=== PATIENT | female | born 1990 | race Caucasian/White ===

== ENCOUNTER 2016-06-22 22:04 | Inpatient (IN) | payer OTHER ==
[2016-06-23] MEDS ORDERED: TERBUTALINE SULFATE 1 MG/ML VIAL IV PRN (01:25)
[2016-06-23] MEDS ORDERED: OXYTOCIN/RINGERS LACTATE 1,000 ML IV PRN (01:25)
[2016-06-23] MEDS ORDERED: EPSOM SALT 454 GM TP PRN (01:25)
[2016-06-23] MEDS ORDERED: LIDOCAINE 1% 30 ML SDV SC PRN (01:25)
[2016-06-23] MEDS ORDERED: OLIVE OIL 118 ML BTL MISC PRN (01:25)
[2016-06-23] MEDS ORDERED: ACETAMINOPHEN 500 MG TAB PO ONE (01:30)
[2016-06-23] MEDS: LR 1,000 ML IV PRN ×3 (02:10→08:21)
[2016-06-23 02:19] LABS: % IMMATURE GRANULYOCYTES 0.8 % (0.0-1.1); ABSOLUTE IMMATURE GRANULOCYTES 0.16 10^3/uL (0.00-0.10); ADD DIFF? NO; ADD MORPH? NO; ADD SCAN? NO; ATYPICAL LYMPHOCYTE FLAG 0 (0-99); FRAGMENT RBC FLAG 0 (0-99); HEMATOCRIT 41.4 % (38.0-47.0); HEMOGLOBIN 14.4 g/dL (12.6-16.3); LEFT SHIFT FLG 10 (0-99); LIPEMIA HEMOLYSIS FLAG 90 (0-99); MEAN CELL HEMOGLOBIN 32.7 pg (27.9-34.1); MEAN CELL HEMOGLOBIN CONCENTR. 34.8 g/dL (32.4-36.7); MEAN CELL VOLUME 94.1 fL (81.5-99.8); MEAN PLATELET VOLUME 10.5 fL (8.7-11.7); PLATELET CLUMPS FLAG 20 (0-99); PLATELET COUNT 249 10^3/uL (150-400); RED CELL DISTRIBUTION WIDTH 13.9 % (11.5-15.2)
[2016-06-23] MEDS ORDERED: LIDOCAINE 1% 30 ML SDV ONE (02:20)
[2016-06-23] MEDS ORDERED: OLIVE OIL 118 ML BTL ONE (02:20)
[2016-06-23] MEDS ORDERED: MISOPROSTOL 200 MCG TAB ONE (02:21)
[2016-06-23] MEDS ORDERED: OXYTOCIN 10 UNIT/ML VIAL ONE (02:21)
[2016-06-23] MEDS ORDERED: TERBUTALINE SULFATE 1 MG/ML VIAL ONE (02:21)
[2016-06-23] MEDS ORDERED: fentaNYL 100 MCG/2 ML INJ ONE (02:46)
[2016-06-23] MEDS ORDERED: BUPIVACAINE 0.25% 30 ML SDV ONE (02:47)
[2016-06-23] MEDS ORDERED: fentaNYL 2MCG/ML/BUP 0.1% RTU 100 ML BAG EP ONE ×2 (02:48→10:22)
[2016-06-23] MEDS ORDERED: PHENYLEPHRINE HCL 100 MCG/ML SYR ONE (02:49)
--- NOTE | 2016-06-23 02:54 | GHP ---
[f rep st] HISTORY AND PHYSICAL DATE OF ADMISSION: 06/23/2016 ADMITTING DIAGNOSIS: Intrauterine at 39-2/7 weeks' gestation in spontaneous labor. HISTORY OF PRESENT ILLNESS: The patient is a 25-year-old 1, para 0, with a last menstrual p eriod 09/28/2015 and an EDC of 06/28/2016, which was confirmed by an 8-week ultrasound. She has had good care at [facility] since 8 weeks' gestation and has no significant risk factors. Patient began having contractions on the morning of the . They gradually increa sed in intensity and frequency over the course of the day and the evening, and they eventually progr essed to every 3-5 minutes. Patient presented to the hospital. Her cervix was originally 2 cm and 70%. She was observed for a couple hours, and she progressed to 3-4, 70, -1, and she is uncomfortab le and desires pain control, so she will be admitted for active labor management. She is intact, mcmullen s no significant bleeding or leakage of fluid, and baby has been moving well. PAST OBSTETRICAL HISTORY: Patient has no past obstetrical history. This is her first . PAST GYNECOLOGICAL HISTORY: No significant past gynecological history. She has used oral contracep tive pills in the past. Has a normal menstrual triad and received her Gardasil vaccine. PAST MEDICAL HISTORY: Only medical issue significant is she had a softball injury, crushed her left eye socket in high school. She did not require surgery for this. PAST SURGICAL HISTORY: LASIK. ALLERGIES: No known drug allergies. MEDICATIONS: Include vitamins and DHA. LABORATORY DATA: She is O positive, antibody negative, RPR nonreactive, rubella immune, hepatitis n egative, HIV negative. Cystic fibrosis, SMA, and fragile X negative. Verifi was normal. AFP was n ormal. 1-hour GTT was 88 and GBS was negative. SOCIAL HISTORY: She is . She lives with her , and she denies tobacco, alcohol, and d rug use. 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 FAMILY HISTORY: Mother has asthma. Paternal grandfather had diabetes. Brother has IgA nephropathy and kidney issues. Both her maternal grandfather and maternal grandmother and paternal grandfather had lung cancer. Maternal grandfather also had prostate cancer, and that is all that is significan t. REVIEW OF SYSTEMS: Negative except for labor. OBJECTIVE: VITAL SIGNS: Today, she is afebrile. Vital signs are stable. heart tones were 1 30s, reactive, moderate variability, category 1. Contractions are every 3-5 minutes. Cervix 3-4, 7 0%, -1, intact. ASSESSMENT AND PLAN: A 25-year-old 1, para 0, at 39-2/7 weeks' gestation in active labor. Patient will be admitted for active labor management. She desires pain control, and she will get pa in control as desired. /[id number]/MODL
[2016-06-23] MEDS ORDERED: LR 500 ML IV SCH (03:30)
[2016-06-23] MEDS: CALCIUM CARBONATE 500 MG CHEWABLE TAB PO PRN ×3 (03:48→12:59)
--- NOTE | 2016-06-23 08:01 | OBPROG ---
OBG Progress Note Assessment/Plan: Assessment: 25y/o IUP @39w2d admitted in active labor FH Tracing Cat 1 Plan: AROM - clear @[address] Con't maternal/ monitoring Expectant mgmt Anticipate 06/23/16 07:58 Subjective: Pt resting comfortably in bed s/p epidural, denies pain. FOB at bedside. Objective: 06/23/16 02:07 Patient ABO/Rh O POSITIVE 06/23/16 02:07 - SVE Dilation (cm): 5 Effacement (%): 75 Station: -2 Current Contraction Pattern: Regular (q 4 min) FHR (bpm): 150 FHR Pattern Variability: Moderate (+accels, -decels) FHR Category: 1 Membranes: AROM (clear @0725, blood show) Amniotic Fluid Color: Clear ICD10 Worksheet Patient Problems: Problems Problem Status Onset Active labor at term Acute - ICD10 Problem Qualifiers (1) Active labor at term
--- NOTE | 2016-06-23 11:43 | OBPROG ---
OBG Progress Note Assessment/Plan: Assessment: 25y/o IUP @39w2d admitted in active labor FH Tracing Cat 2 Plan: Labor-down until feeling urge to push Epidural in place Con't maternal/ monitoring Expectant mgmt Anticipate 06/23/16 11:43 Subjective: Pt still comfortable s/p epiudral. C/O increased pressure/pain with CTXs. Objective: 06/23/16 02:07 Patient ABO/Rh O POSITIVE 06/23/16 02:07 - SVE Dilation (cm): 8 Effacement (%): 100 Station: 0 Current Contraction Pattern: Regular (q 2-4 min) FHR (bpm): 145 FHR Pattern Variability: Moderate FHR Category: 2 (+accels, occas variable decel with spont return to baseline) Membranes: AROM (@0725) Amniotic Fluid Color: Clear ICD10 Worksheet Patient Problems: Problems Problem Status Onset Active labor at term Acute - ICD10 Problem Qualifiers (1) Active labor at term
--- NOTE | 2016-06-23 14:11 | OBPROC ---
- Labor and Delivery Onset of Contractions Date: 06/22/16 Onset of Contractions Time: 15:00 Onset of Contractions Type: Spontaneous Rupture of Membranes Date: 06/23/16 Rupture of Membranes Time: 07:27 Rupture of Membranes Type: Artificial Amniotic Fluid Color: Clear Dilation Complete Time: 12:35 Delivery Type: Spontaneous Placenta Delivery Date: 06/23/16 Placenta Delivery Time: 13:43 Episiotomy/Laceration: 1st Degree, Perineal (hemostatic), Periurethral ( bilateral, hemostatic) EBL: 300 Complications: Nuchal Cord (x1, easily reduced) - Medications Labor Augmentation/Induction Meds Used: None Anesthesia: Epidural - [place] Info A Delivery Date: 06/23/16 Delivery Time: 13:34 Sex of : Female Score (1 Min): 8 Score (5 Min): 9
[2016-06-23] MEDS ORDERED: HYDROCODONE/APAP 5/325 TAB PO PRN (14:13)
[2016-06-23] MEDS ORDERED: SIMETHICONE 80 MG TAB CHEW PO PRN (14:13)
[2016-06-23] MEDS ORDERED: DOCUSATE SODIUM 100 MG CAP PO PRN (14:13)
[2016-06-23] MEDS ORDERED: HYDROCORTISONE 0.5% CREAM TP PRN (14:13)
[2016-06-23] MEDS ORDERED: ACETAMINOPHEN 325 MG TAB PO PRN (14:13)
[2016-06-23] MEDS ORDERED: OXYTOCIN/RINGERS LACTATE 1,000 ML IV SCH (14:30)
[2016-06-23] MEDS: IBUPROFEN 600 MG TAB PO PRN ×2 (14:36→21:14)
[2016-06-23 20:09] VITALS: RESP 16
--- NOTE | 2016-06-24 07:53 | OBPROG ---
OBG Progress Note Assessment/Plan: Assessment: s/p PPD # 1 - pt is stable Plan: Continue routine pp care Plan for d/c home today Instructions reviewed with pt No RX given Cont PNV Plevic rest RTC in 4 and 6 weeks 06/24/16 07:51 Subjective: Pt seen and examined. Doing well with no complaints. Minimal cramping-no meds taken. Moderate lochia. without difficulty. Wants to go home today. Objective: 06/23/16 02:07 Patient ABO/Rh O POSITIVE 06/23/16 02:07 Temp Pulse Resp BP Pulse Ox 36.9 C 96 16 106/72 98 06/23/16 19:35 06/23/16 19:35 06/23/16 19:35 06/23/16 19:35 06/23/16 19:35 Uterine Position/Fundal Height: Umbilicus -2 Uterine Tone: Firm - Physical Exam General Appearance: WD/WN, alert, no apparent distress Respiratory: lungs clear, normal breath sounds Cardiac/Chest: regular rate, rhythm Abdomen: normal bowel sounds, non-tender, soft, flatus (+) Genitourinary: lochia (moderate) Extremities: non-tender, normal inspection Neuro/Psych: alert, normal mood/affect, oriented x 3 ICD10 Worksheet Patient Problems: Problems Problem Status Onset (spontaneous vaginal delivery) Acute
[2016-06-24] MEDS: IBUPROFEN 600 MG TAB PO PRN (08:29)
[2016-06-24 08:37] VITALS: BP 106/69; PULSE 92; TEMP 98; O2SAT 97
== END 2016-06-24 15:00 | disposition home or self-care (01) | DRG 775 ==
LOC: OBSVTOIN 22:04 → FLD 22:04 → FOB 06-23 16:30
PROVIDERS: ADMIT Obstetrics & Gynecology; ATTEND Obstetrics & Gynecology
PROC: 10907ZC Drainage of Amniotic Fluid, Therapeutic from Products of Conception, Via Natural or Artificial Opening (ICD-10-PCS; principal; 2016-06-22)
PROC: 10E0XZZ Delivery of Products of Conception, External Approach (ICD-10-PCS; principal; 2016-06-22)
DX: O70.0 First degree perineal laceration during delivery (principal); O69.81X0 Labor and delivery complicated by cord around neck, without compression, not applicable or unspecified; Z3A.39 39 weeks gestation of pregnancy; Z37.0 Single live birth
CPT/HCPCS: J2370; J2590; J3010; J3105

== ENCOUNTER 2018-04-28 20:39 | Inpatient (IN) | payer OTHER ==
[2018-04-28] MEDS ORDERED: EPSOM SALT 454 GM TP PRN (21:15)
[2018-04-28] MEDS ORDERED: OLIVE OIL 118 ML BTL MISC PRN (21:15)
[2018-04-28] MEDS ORDERED: MISOPROSTOL 200 MCG TAB PR PRN (21:15)
[2018-04-28] MEDS ORDERED: LIDOCAINE 1% 300 MG/30 ML SDV SC PRN (21:15)
[2018-04-28] MEDS ORDERED: LR 1,000 ML IV PRN (21:15)
[2018-04-28] MEDS ORDERED: OXYTOCIN/RINGERS LACTATE 1,000 ML IV PRN (21:15)
[2018-04-28] MEDS ORDERED: IBUPROFEN 600 MG TAB PO PRN (21:15)
[2018-04-28] MEDS ORDERED: LIDOCAINE 1% 300 MG/30 ML SDV ONE (21:43)
[2018-04-28] MEDS ORDERED: AMMONIA AROMATIC 1 EACH AMP IH ONE (21:44)
[2018-04-28] MEDS ORDERED: OLIVE OIL 118 ML BTL ONE (21:44)
[2018-04-28] MEDS ORDERED: MISOPROSTOL 200 MCG TAB ONE (21:44)
[2018-04-28] MEDS ORDERED: OXYTOCIN 10 UNIT/ML VIAL ONE (21:44)
[2018-04-28] MEDS ORDERED: TERBUTALINE SULFATE 1 MG/ML VIAL ONE (21:44)
[2018-04-28 21:45] LABS: PLATELET COUNT 256 10^3/uL (150-400)
[2018-04-28] MEDS ORDERED: fentaNYL 2MCG/ML/BUP 0.1% RTU 100 ML BAG EP ONE (22:05)
[2018-04-28] MEDS ORDERED: NALOXONE HCL 0.4 MG/ML INJ IVP PRN (22:36)
[2018-04-28] MEDS ORDERED: ONDANSETRON 4 MG/2 ML VIAL IVP PRN (22:36)
--- NOTE | 2018-04-28 22:37 | PREANESOB ---
Obstetric Pre-Anesthesia Info - General Info Proposed Procedure: NPO Start Time: 19:00 (water since) : 2 Para: 1 NYA: 05/05/18 Gestational Age: 39 week(s) and 0 day(s) - Info Status: Full Term Monitors: External FHR Pattern: Reassuring - Labor Status Cervical Dilation per last OB SVE: 4 Indications for Labor Analgesia: Pain Control Labor Epidural: Proposed Anesthesia ROS: Pt denies any significant past medical history. Reports back pain with labor and GERD in third trimester, otherwise no complications with per pt. Allergies/Adverse Reactions: Allergy/AdvReac Type Severity Reaction Status Date / Time No Known Allergies Allergy Unverified 06/22/16 22:18 Home Medications: Medication Instructions Recorded 1 tab PO DAILY 06/22/16 Ibuprofen [Motrin (*)] 600 mg PO Q6HRS PRN #30 tab 06/24/16 Visit Medications: Generic Name Dose Route Start Last Admin Trade Name Freq PRN Reason Stop Dose Admin Lactated Ringer's 1,000 mls @ 0 mls/hr 04/28/18 21:15 Lr IV 04/29/18 21:14 PRN PRN SEE PROTOCOL CONDITIONS Protocol Per Protocol Oxytocin/Lactated Ringer's 1,000 mls @ 125 mls/hr 04/28/18 21:15 Pitocin 20 Units/Lr (Premix) IV PRN PRN Post bleeding Ibuprofen 600 mg 04/28/18 21:15 Motrin PO ONCE PRN post , pain Lidocaine HCl 300 mg 04/28/18 21:15 Lidocaine Hcl 1% SC 10/25/18 21:14 ONCE PRN episiotomy Magnesium Sulfate 454 gm 04/28/18 21:15 Epsom Salt TP 10/25/18 21:14 Q1H PRN perineal discomfort Misoprostol 800 - 1,000 mcg 04/28/18 21:15 Cytotec MA ONCE PRN Vaginal Atony/Bleeding [place] Oil 118 ml 04/28/18 21:15 Sweet Oil MISC 10/25/18 21:14 ONCE PRN perineal massage Discontinued Medications Generic Name Dose Route Start Last Admin Trade Name Freq PRN Reason Stop Dose Admin Ammonia (Aromatic Spirit) Confirm 04/28/18 21:44 Ammonia Aromatic Administered 04/28/18 21:45 Dose 1 each IH .STK-MED ONE Fentanyl/Bupivacaine HCl Confirm 04/28/18 22:05 Fentanyl/Bupivacaine/Ns 2 Mcg/Ml 0.1% (Premix Administered 04/28/18 22:06 Dose 100 ml EP .STK-MED ONE Lidocaine HCl Confirm 04/28/18 21:43 Lidocaine Hcl 1% Administered 04/28/18 21:44 Dose 300 mg .ROUTE .STK-MED ONE Misoprostol Confirm 04/28/18 21:44 Cytotec Administered 04/28/18 21:45 Dose 1,000 mcg .ROUTE .STK-MED ONE [place] Oil Confirm 04/28/18 21:44 Sweet Oil Administered 04/28/18 21:45 Dose 118 ml .ROUTE .STK-MED ONE Oxytocin Confirm 04/28/18 21:44 Pitocin Administered 04/28/18 21:45 Dose 40 unit .ROUTE .STK-MED ONE Terbutaline Sulfate Confirm 04/28/18 21:44 Brethine Administered 04/28/18 21:45 Dose 1 mg .ROUTE .STK-MED ONE - Anesthesia History Response to Local Anesthetics: Normal Anesthesia & Operative History: No Prior Problems - Social History Substance Use/Abuse: Denies - Vital Signs Latest Vital Signs (Nursing): See nursing documentation for vital signs. Height/Weight (Nursing): Height 162.56 cm Weight 78.925 kg - Focused Exam Neck exam: FROM Mallampati Score: Class 2 Mouth exam: normal dental/mouth exam Pulmonary: clear to auscultation Cardiovascular: regular rate and rhythym Labs: 04/28/18 21:30 Patient ABO/Rh O POSITIVE 04/28/18 21:30 - Plan Consent Signed and on Chart: Yes Patient/Guardian Understands and Agrees to Plan: Yes Urgent/Emergent Case: [place] mina completed preop but documented later for safe timely pt care
[2018-04-28] MEDS ORDERED: PHENYLEPHRINE HCL 100 MCG/ML SYR IVP PRN (22:46)
[2018-04-28] MEDS ORDERED: LR 500 ML IV SCH (23:00)
[2018-04-28] MEDS ORDERED: fentaNYL 2MCG/ML/BUP 0.1% RTU 100 ML EP SCH (23:00)
--- NOTE | 2018-04-28 23:59 | OBPROG ---
Labor Progress Note Assessment/Plan: Assessment: 27 y/o [id number] @ 39 weeks who presents in active labor Plan: Pt is comfortable, s/p epidural AROM - small amount blood-tinged fluid noted FHTs - Cat I strip, reassuring Anticipate 04/28/18 23:54 Subjective/Intrapartum Course: 04/28/18 23:55 Pt is comfortable, s/p epidural Objective: 04/28/18 21:30 Patient ABO/Rh O POSITIVE 04/28/18 21:30 - SVE Dilation (cm): 6 Effacement (%): 90 Station: 0 Membranes: AROM (small amout of fluid) Amniotic Fluid Color: Bloody - Contraction Pattern Assessment Current Contraction Pattern: Regular (q3-4 min) - FHR Assessment Lucia FHR (bpm): 130 FHR Pattern Variability: Moderate FHR Category: 1 - Procedures Non-surgical Procedures: Amniotomy - AP Antepartum Course: 04/28/18 23:56 +THC on UDS in first trimester; Posterior placenta previa noted on 22 week u/s and resolved on u/s at 28 weeks Oxytocin Orders Assessment - Pre-Induction/Augmentation Assessment Gestational Age: 39 week(s) and 0 day(s) ICD10 Worksheet Patient Problems: Problems Problem Status Onset (spontaneous vaginal delivery) Acute
--- NOTE | 2018-04-29 01:19 | OBPROG ---
Labor Progress Note Assessment/Plan: Assessment: 27 y/o [id number] @ 39 weeks who presents in active labor Plan: Called by RN re: pt is complete/+1 FHTs - Cat II strip with intermittent variable decels Will have pt labor down x 15 min and then will start pushing Anticipate 04/29/18 01:15 Subjective/Intrapartum Course: 04/28/18 23:55 Pt is comfortable, s/p epidural 04/29/18 01:17 Pt is c/o pressure Objective: 04/28/18 21:30 Patient ABO/Rh O POSITIVE 04/28/18 21:30 - SVE Dilation (cm): 10 (by RN) Effacement (%): 100 Station: +1 Membranes: AROM (small amout of fluid) Amniotic Fluid Color: Bloody - Contraction Pattern Assessment Current Contraction Pattern: Regular (q3-4 min) - FHR Assessment Lucia FHR (bpm): 130 FHR Pattern Variability: Moderate FHR Category: 2 (Intermittent variable decels x 20 sec with ashley to 90 bpm) - Procedures Non-surgical Procedures: Amniotomy - AP Antepartum Course: 04/28/18 23:56 +THC on UDS in first trimester; Posterior placenta previa noted on 22 week u/s and resolved on u/s at 28 weeks. Oxytocin Orders Assessment - Pre-Induction/Augmentation Assessment Gestational Age: 39 week(s) and 0 day(s) ICD10 Worksheet Patient Problems: Problems Problem Status Onset Normal labor Acute - ICD10 Problem Qualifiers (1) Normal labor
[2018-04-29] MEDS ORDERED: SIMETHICONE 80 MG TAB CHEW PO PRN (01:49)
[2018-04-29] MEDS ORDERED: DOCUSATE SODIUM 100 MG CAP PO PRN (01:49)
[2018-04-29] MEDS ORDERED: HYDROCORTISONE 0.5% CREAM TP PRN (01:49)
[2018-04-29] MEDS ORDERED: ACETAMINOPHEN 325 MG TAB PO PRN (01:49)
--- NOTE | 2018-04-29 01:54 | OBDEL ---
Info Type: Vaginal Presentation at Delivery: Vertex ([place]; compound presentation) L&D Analgesia/Anesthesia Type: Epidural GBS+: No Intrapartum Medications: Generic Name Dose Route Start Last Admin Trade Name Jackie PRN Reason Stop Dose Admin Lactated Ringer's 500 mls @ 0 mls/hr 04/28/18 23:00 04/28/18 21:31 Lr IV 10/25/18 22:59 500 mls CONT NICK Administration As Directed - Hospital Course Intrapartum: 04/28/18 23:55 Pt is comfortable, s/p epidural 04/29/18 01:17 Pt is c/o pressure Indications for Delivery: Spontaneous Labor Vaginal Delivery - Delivery Provider Delivery Physician/CNM: Claudia Ford - Labor and Delivery Onset of Contractions Date: 04/28/18 Onset of Contractions Time: 16:00 Onset of Contractions Type: Spontaneous Rupture of Membranes Date: 04/28/18 Rupture of Membranes Time: 23:45 Rupture of Membranes Type: Artificial Amniotic Fluid Color: Clear, Bloody Dilation Complete Date: 04/29/18 Dilation Complete Time: 01:08 Placenta Delivery Date: 04/29/18 Placenta Delivery Time: 01:45 Total Hours of Labor: 9 Non-surgical Procedures: Amniotomy Laceration: Other (Specify) (Superficial L periurethral tear noted-hemostatic; perineum intact) Vaginal Sponge Count Correct: Yes Vaginal Needle Count Correct: Yes Vaginal Sweep Performed: Yes EBL: 250 ccc Delivery Events: Nuchal Cord (loose-delivered through) Delivery Comment: A viable female infant born at 0137 in [place], compound presentation over intact perineum under an epidural with 8 and 9 Apgars. Nuchal cord x1 noted, loose and delivered through. Baby girl to maternal abdomen. Cord clamping was delayed greater than 60 seconds. Cord then clamped x 2 and cut. Placenta delivered spontaneously intact with 3-vc. Vagina and perineum inspected and no lacs noted. A superficial left periurethral tear noted, hemostatic-no repair needed. EBL 250 cc. Both mom and baby girl in stable condition. No complications. Data NYA: 05/05/18 Gestational Age: 39 week(s) and 1 day(s) Lucia Delivery Date: 04/29/18 Delivery Time: 01:37 Sex of : Female Score (1 Min): 8 Score (5 Min): 9 ICD10 Worksheet Patient Problems: Problems Problem Status Onset Normal labor Acute - ICD10 Problem Qualifiers (1) Normal labor (2) (spontaneous vaginal delivery)
--- NOTE | 2018-04-29 02:48 | GHP ---
[f rep st] HISTORY AND PHYSICAL DATE OF ADMISSION: 04/28/2018 ADMITTING DIAGNOSES: 1. Intrauterine at 39 weeks. 2. Active labor. HISTORY OF PRESENT ILLNESS: Patient is a 27-year-old 2, para 1-0-0-1 at 39 weeks with estimated due date 05/05/2018, by a 7-week ultrasound. The patient presents to labor and delivery with complaints of contractions that started several hours ago. He contraction are every 3-1/2 minutes, lasting about 50 seconds. Patient denies any leakage of fluid or vaginal bleeding and she states there is good movement. Patient does desire an epidural for pain control. The patient has good care at [facility] and presented in her 1st trimester. is complicated by positive marijuana on urine drug screen. A posterior previa was diagnosed at 22 weeks, but resolved on 28-week ultrasound. The patient received Tdap during the and developed mild anemia. GBS culture is negative. PAST OB HISTORY: In May 2016, she delivered a viable female weighing 6 pounds 9 ounces at 39 weeks 2 days; she had an uncomplicated vaginal delivery. WASTE SALVAGER HISTORY: Age of menarche 10 or 11 years. Cycles have been irregular since she was her daughter. Unknown last menstrual period. The patient denies a history of abnormal Pap smears or any exposure to sexually transmitted diseases. CURRENT MEDICATIONS: Include wypk-lsi-eslyibi vitamins, DHA, calcium. ALLERGIES: No known drug allergies. PAST MEDICAL HISTORY: Unremarkable. PAST SURGICAL HISTORY: LASIK eye surgery 2009, wisdom teeth extraction. FAMILY HISTORY: Mother: TIA at 56 years of age. Sister: Migraine headaches. Paternal grandmother and paternal aunts: Depression. Paternal grandfather: Lung and prostate cancer. Paternal grandmother, paternal grandfather: Lung cancer. Maternal aunt: secondary to colon cancer. SOCIAL HISTORY: Patient is and lives with her and their daughter, Vaibhav. 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 She denies any alcohol or tobacco use currently. She does admit to marijuana use, and discontinued it May 2017. REVIEW OF SYSTEMS: A 10-point review of systems is negative. Pertinent positives noted in HPI. LABS: First trimester H and H, 14.6 and 42.8, platelets 320. Blood type O positive, antibody negative. RPR nonreactive. Rubella immune. Hepatitis B surface antigen negative. HIV negative. Trio screen is negative 2015. Standard panel negative 09/2017. Urine drug screen positive for marijuana. Varicella and parvovirus immune. UA and urine culture negative. Pap, gonorrhea, and chlamydia cultures all negative 09/26/2017. Innatal screen negative. Third trimester H and H 13.6 and42.1, platelets 205. One-hour Glucola 67. GBS culture is negative. PHYSICAL EXAMINATION: VITAL SIGNS: On admission vital signs are stable. Patient is afebrile with a temperature 37.2, heart rate of 108 (after epidural it came down to 96), and blood pressure is 114/76. GENERAL: The patient is a well-nourished, well-developed female. Alert and oriented x3, in mild distress secondary to pain with contractions. SKIN: Warm, dry without rash. NEURO: Grossly intact. CARDIOVASCULAR: Regular rate and rhythm. LUNGS: Clear to auscultation bilaterally. ABDOMEN: Gravid, soft, nontender. PELVIC: On exam on admission was found to be 4 cm dilated, 50% effaced, -3 station, and intact. EXTREMITIES: Normal to inspection without calf tenderness or edema. heart tones are category II strip with a baseline in 130s, positive accelerations, intermittent mild variable decelerations during contractions, with ashley down to 90 beats per minute, lasting about 20 to 30 seconds. On toco , she is camilel every 3 to 4 minutes. ASSESSMENT/PLAN: Patient is a 27-year-old 2, para 1-0-0-1 at 39 weeks who presents in active labor. 1. Admit to labor and delivery for expectant management. 2. GBS culture is negative, no prophylactic antibiotics are needed. 3. Patient desires an epidural for pain control. 4. Anticipate vaginal delivery. /[id number]/MODL MTDD
[2018-04-29] MEDS: IBUPROFEN 600 MG TAB PO PRN ×3 (09:33→22:28)
--- NOTE | 2018-04-29 12:38 | OBPP ---
Progress Note Assessment/Plan: Assessment: 27 y/o PPD 0 s/p doing well Plan: Routine PPC. D/c home tomorrow. 04/29/18 12:29 Subjective/ Course: 04/29/18 12:27 Pt is doing great today. She has min cramping controlled by Ibuprofen. She is ambulating and voiding well and has min lochia. Breast feeding is going well and baby has a good latch. Objective: 04/28/18 21:30 Patient ABO/Rh O POSITIVE 04/28/18 21:30 Temp Pulse Resp BP Pulse Ox 36.6 C 96 15 100/63 95 04/29/18 03:30 04/29/18 03:30 04/29/18 03:30 04/29/18 03:30 04/29/18 03:30 Uterine Position/Fundal Height: Umbilicus -2 Uterine Tone: Firm Physical Exam - Physical Exam General Appearance: WD/WN, alert, no apparent distress Neck: non-tender, full range of motion, supple Respiratory: chest non-tender, lungs clear, normal breath sounds Cardiac/Chest: regular rate, rhythm Abdomen: normal bowel sounds Extremities: swelling (no), Alanis's sign (neg)
--- NOTE | 2018-04-29 15:55 | POSTANESTH ---
Post Anesthetic Evaluation Cardiovascular Status: Normal, Stable Respiratory Status: Normal, Stable Level of Consciousness/Mental Status: Can Participate in Eval Pain Control: Adequate, Prn Tx Ordered Nausea/Vomiting Control: Adequate, Prn Tx Ordered Complications Possibly Related to Anesthesia: None Noted
[2018-04-30] MEDS: IBUPROFEN 600 MG TAB PO PRN ×2 (05:36→11:14)
[2018-04-30 10:03] VITALS: BP 85/64
--- NOTE | 2018-04-30 10:28 | OBPP ---
Progress Note Assessment/Plan: Assessment: s/p PPD #1 - pt is stable O+/RI/ GBS neg Plan: Plan for d/c home today Instructions reviewed with pt No Rx given Cont PNV and stool softener Pelvic rest and lifting restrictions reviewed RTC iin 4 weeks fo a mood check and 6 weeks for a pp visit 04/30/18 10:25 Subjective/ Course: 04/29/18 12:27 Pt is doing great today. She has min cramping controlled by Ibuprofen. She is ambulating and voiding well and has min lochia. Breast feeding is going well and baby has a good latch. 04/30/18 10:27 Pt seen and examined. Doing well with no complaints. Mild cramping. Mod lochia. She is carl regular diet, voiding and passing flatus. No BM yet. BF is going well. She is ready to go home today. Objective: 04/28/18 21:30 Patient ABO/Rh O POSITIVE 04/28/18 21:30 Temp Pulse Resp BP Pulse Ox 36.7 C 70 16 85/64 L 97 04/30/18 08:00 04/30/18 08:00 04/30/18 08:00 04/30/18 08:00 04/29/18 19:41 Uterine Position/Fundal Height: Umbilicus -2 Uterine Tone: Firm Physical Exam - Physical Exam General Appearance: WD/WN, alert, no apparent distress Respiratory: lungs clear, normal breath sounds Cardiac/Chest: regular rate, rhythm Abdomen: normal bowel sounds, non-tender, soft, flatus (+) Extremities: non-tender, normal inspection Skin: normal color, warm/dry Neuro/Psych: alert, normal mood/affect, oriented x 3
--- NOTE | 2018-04-30 10:29 | OBGCSDC ---
General Delivery Information - General Info : 2 Para: 2 Abortions: 0 Type: Vaginal L&D Analgesia/Anesthesia Type: Epidural Admission Date: 04/28/18 Labs: Patient ABO/Rh O POSITIVE 04/28/18 21:30 Hct 41.7 % (38.0-47.0) 04/28/18 21:30 - Hospital Course Antepartum: 04/28/18 23:56 +THC on UDS in first trimester; Posterior placenta previa noted on 22 week u/s and resolved on u/s at 28 weeks. Intrapartum: 04/28/18 23:55 Pt is comfortable, s/p epidural 04/29/18 01:17 Pt is c/o pressure : 04/29/18 12:27 Pt is doing great today. She has min cramping controlled by Ibuprofen. She is ambulating and voiding well and has min lochia. Breast feeding is going well and baby has a good latch. 04/30/18 10:27 Pt seen and examined. Doing well with no complaints. Mild cramping. Mod lochia. She is carl regular diet, voiding and passing flatus. No BM yet. BF is going well. She is ready to go home today. Vaginal - Delivery Provider Delivery Physician/CNM: Claudia Ford - Diagnosis Labor: Spontaneous Rupture of Membranes Type: Artificial Amniotic Fluid Color: Clear, Bloody Laceration: Other (Specify) (Superficial L periurethral tear noted-hemostatic; perineum intact) Delivery Events: Nuchal Cord (loose-delivered through) - Procedures Non-surgical Procedures: Amniotomy - Delivery Non-surgical Procedures: Amniotomy EBL: 250 [facility] Data NYA: 05/05/18 Gestational Age: 39 week(s) and 2 day(s) Lucia Delivery Date: 04/29/18 Delivery Time: 01:37 Sex of Infant: Female Score (1 Min): 8 Score (5 Min): 9 Discharge Information - Discharge Information Condition: Good Instruction/Follow Up: Four Weeks (mood check), Six Weeks ( check)
== END 2018-04-30 12:35 | disposition home or self-care (01) | DRG 807 ==
LOC: FLD 20:39 → OBSVTOIN 21:16 → FOB 04-29 04:13
PROVIDERS: ADMIT Obstetrics & Gynecology; ATTEND Obstetrics & Gynecology
DX: O69.82X0 Labor and delivery complicated by other cord entanglement, without compression, not applicable or unspecified (principal); Z37.0 Single live birth; Z3A.39 39 weeks gestation of pregnancy; O71.89 Other specified obstetric trauma
CPT/HCPCS: J2590; J3105